=== PATIENT | female | born 2000 | race Caucasian/White ===

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

== ENCOUNTER 2020-01-22 21:54 | Emergency (ER) | payer OTHER ==
--- NOTE | 2020-01-22 23:49 | ER Document Report ---
ED Medical Screen (RME) - General Chief Complaint: Blood Pressure Problem Stated Complaint: HIGH BLOOD PRESSURE Time Seen by Provider: 01/22/20 23:28 Notes: 20-year-old female, at 24 weeks gestation, chief complaint of headache earlier, some swelling in her hands and feet, intermittent pain along her right rib, sensation of lightheadedness and shortness of breath. She denies current shortness of breath, she denies current pain, she took Tylenol for headache and it resolved. She states she was seen by HEAD OF MARKETING [facility] and her blood pressure was 150 systolic, she was not noted to be hypertensive before 20 weeks. She denies any medical history. TRAVEL OUTSIDE OF THE [place] IN LAST 30 DAYS: No - Related Data Allergies/Adverse Reactions: No Known Allergies Allergy (Unverified 11/02/17 22:29) Past Medical History Renal/ Medical History: Denies: Hx Peritoneal Dialysis Physical Exam - Vital signs Vitals: Temp Pulse Resp BP Pulse Ox 98.8 F 83 16 145/75 H 100 01/22/20 22:13 01/22/20 22:13 01/22/20 22:13 01/22/20 22:13 01/22/20 22:13 - Respiratory Respiratory status: No respiratory distress Breath sounds: Normal. No: Decreased air movement Course - Re-evaluation Re-evalutation: Blood pressure 145, work-up pending. Patient well-appearing with no symptoms currently. I have greeted and performed a rapid initial assessment of this patient. A comprehensive ED assessment and evaluation of the patient, analysis of test results and completion of the medical decision making process will be conducted by additional ED providers. - Vital Signs Vital signs: Temp Pulse Resp BP Pulse Ox 98.8 F 83 16 145/75 H 100 01/22/20 23:29 01/22/20 22:13 01/22/20 22:13 01/22/20 22:13 01/22/20 22:13
[2020-01-23 00:21] LABS: APPEARANCE,URINE CLOUDY; BILIRUBIN,URINE NEGATIVE (NEGATIVE); COLOR,URINE YELLOW; GLUCOSE, URINE NEGATIVE (NEGATIVE); KETONES,URINE NEGATIVE (NEGATIVE); LEUKOCYTE ESTERASE,URINE LARGE (NEGATIVE); NITRITE,URINE NEGATIVE (NEGATIVE); PROTEIN,URINE NEGATIVE (NEGATIVE); URINE SPECIFIC GRAVITY 1.018; UROBILINOGEN,URINE NEGATIVE mg/dL (<2.0)
[2020-01-23 01:36] LABS: ABSOLUTE EOSINOPHILS # (AUTO) 0.1 10^3/uL (0.0-0.6); ABSOLUTE LYMPHOCYTES (AUTO) 3.1 10^3/uL (0.5-4.7); ABSOLUTE MONOCYTES (AUTO) 0.9 10^3/uL (0.1-1.4); ABSOLUTE NEUT (AUTO) 14.8 10^3/uL (1.7-8.2); BASOPHILS % (AUTO) 0.2 % (0-2); EOSINOPHILS % (AUTO) 0.6 % (0-6); HEMATOCRIT 35.8 % (36.0-47.0); HEMOGLOBIN 11.9 g/dL (12.0-15.5); LYMPHOCYTES % (AUTO) 16.4 % (13-45); MEAN CORPUSCULAR HEMOGLOBIN 25.9 pg (27.0-33.4); MEAN CORPUSCULAR HGB CONC 33.2 g/dL (32.0-36.0); MEAN CORPUSCULAR VOLUME 78 fl (80-97); MONOCYTES % (AUTO) 4.9 % (3-13); PLATELET COUNT 283 10^3/uL (150-450); RED BLOOD COUNT 4.57 10^6/uL (3.72-5.28); SEGMENTED NEUTROPHILS % (AUTO) 77.9 % (42-78); TOTAL CELLS COUNTED % (AUTO) 100 %; WHITE BLOOD COUNT 19.1 10^3/uL (4.0-10.5)
[2020-01-23 01:39] LABS: ALBUMIN 4.1 g/dL (3.5-5.0); ALKALINE PHOSPHATASE 99 U/L (38-126); ANION GAP 9 (5-19); ASPARTATE AMINO TRANSFERASE 23 U/L (14-36); BILIRUBIN,TOTAL 0.3 mg/dL (0.2-1.3); BLOOD UREA NITROGEN 6 mg/dL (7-20); CALCIUM 9.5 mg/dL (8.4-10.2); CARBON DIOXIDE 23 mmol/L (22-30); CHLORIDE 103 mmol/L (98-107); GLUCOSE 90 mg/dL (75-110); POTASSIUM 3.8 mmol/L (3.6-5.0); TOTAL PROTEIN 7.5 g/dL (6.3-8.2); URIC ACID 2.8 mg/dL (2.5-6.2)
--- NOTE | 2020-01-23 02:05 | ER Document Report ---
Entered by SHAYNA MOTT SCRIBE 01/23/20 0148 Acting as scribe for:BOOGIE ADORNO, DO ED General - General Chief Complaint: Blood Pressure Problem Stated Complaint: HIGH BLOOD PRESSURE Time Seen by Provider: 01/22/20 23:28 Primary Care Provider: ISIDORO PORTILLO PA-C [Primary Care Provider] - Follow up as needed Mode of Arrival: Ambulatory Information source: Patient Notes: This 20 year old female patient, , currently x24 weeks presents to the ED today with complaints of headache, shortness of breath, and intermittent episodes of dizziness that started x1 week ago. Patient states that she has never had these symptoms before during this . She notes that she took Tylenol x3.5 hours prior to arrival for her headache and it has since resolved. She also reports swelling to LE bilaterally, pain along her right rib, lower abdominal pain, and recurrent yeast infections. She states that she was seen by ENDOCRINOLOGY TEACHER yesterday morning at [facility] and that her blood pressure was 150 systolic; she notes that she usually trends 120/60 at her previous visits. She states that her expected due date is 05/13/2020. Denies any past medical history. Denies fever, cough, sick contacts, urinary symptoms, or vaginal bleeding. Denies any nausea and vomiting outside of morning sickness. TRAVEL OUTSIDE OF THE [place] IN LAST 30 DAYS: No - Related Data Allergies/Adverse Reactions: No Known Allergies Allergy (Unverified 11/02/17 22:29) Past Medical History - General Information source: Patient - Social History Smoking Status: Never Smoker Cigarette use (# per day): No Chew tobacco use (# tins/day): No Smoking Education Provided: No Frequency of alcohol use: None Drug Abuse: None Lives with: Spouse/Significant other Family History: Reviewed & Not Pertinent Patient has suicidal ideation: No Patient has homicidal ideation: No - Medical History Medical History: Other - Denies any past medical history Review of Systems - Review of Systems Constitutional: See HPI. denies: Fever EENT: No symptoms reported Cardiovascular: See HPI, Dizziness Respiratory: See HPI, Short of breath. denies: Cough Gastrointestinal: See HPI, Abdominal pain. denies: Diarrhea, Nausea, Vomiting Genitourinary: See HPI. denies: Burning, Dysuria, Frequency, Hematuria Female Genitourinary: - x24 weeks. denies: Vaginal bleeding Musculoskeletal: See HPI, Leg swelling, Other - Right rib pain Skin: No symptoms reported Hematologic/Lymphatic: No symptoms reported Neurological/Psychological: See HPI, Headaches -: Yes All other systems reviewed and negative Physical Exam - Vital signs Vitals: Temp Pulse Resp BP Pulse Ox 98.8 F 83 16 145/75 H 100 01/22/20 22:13 01/22/20 22:13 01/22/20 22:13 01/22/20 22:13 01/22/20 22:13 Interpretation: Hypertensive - General General appearance: Alert In distress: None - HEENT Head: Normocephalic, Atraumatic Eyes: Normal Pupils: PERRL - Respiratory Respiratory status: No respiratory distress Chest status: Nontender Breath sounds: Normal Chest palpation: Normal - Cardiovascular Rhythm: Regular Heart sounds: Normal auscultation Murmur: No Friction rub: No Gallop: None auscultated - Abdominal Inspection: Other Distension: No distension Bowel sounds: Normal Tenderness: Nontender - Abdomen soft Organomegaly: No organomegaly - Back Back: Normal, Nontender - Extremities General upper extremity: Normal inspection General lower extremity: Normal inspection. No: Edema - Neurological Neuro grossly intact: Yes Orientation: AAOx4 Mosier Coma Scale Eye Opening: Spontaneous Mosier Coma Scale Verbal: Oriented Yamileth Coma Scale Motor: Obeys Commands Yamileth Coma Scale Total: 15 - Psychological Associated symptoms: Normal affect, Normal mood - Skin Skin Temperature: Warm Skin Moisture: Dry Skin Color: Normal Course - Re-evaluation Re-evalutation: 01/23/20 04:37 MDM Pleasant primagravida is here with days of headache, mild RUQ pain and concern over elevated BP. He BP was elevated this am - about 150 systolic - at her OB visit at the . Ob was reportedly not concerned. She has had no bp issues with this but after returning home her mother was concerned. She wanted to be evaluated. No visual changes. Mild headache some better with tylenol and RUQ pain but BP here is better 145/75 with normal lft's and platelets. Additionally UTI present which has been treated. Discussed follow up this am with OB and she expressed understanding. No indication for BP meds at this time. - Vital Signs Vital signs: Temp Pulse Resp BP Pulse Ox 97.4 F 87 16 114/58 L 100 01/23/20 02:50 01/23/20 02:50 01/22/20 22:13 01/23/20 02:50 01/23/20 02:50 - Laboratory Result Diagrams: 01/23/20 01:19 01/23/20 01:19 Laboratory results interpreted by me: 01/23/20 01/23/20 01/23/20 00:01 01:19 01:19 WBC 19.1 H Hgb 11.9 L Hct 35.8 L MCV 78 L MCH 25.9 L RDW 15.0 H Absolute Neuts (auto) 14.8 H Sodium 135.2 L BUN 6 L Creatinine 0.43 L Urine Blood MODERATE H Ur Leukocyte Esterase LARGE H Discharge - Discharge Clinical Impression: Qualifiers: Weeks of gestation: 24 weeks Qualified Code(s): Z3A.24 - 24 weeks gestation of UTI (urinary tract infection) Qualifiers: Urinary tract infection type: site unspecified Hematuria presence: with hematuria Qualified Code(s): N39.0 - Urinary tract infection, site not specified Condition: Good Disposition: HOME, SELF-CARE Instructions: High Blood Pressure ([facility]), Urinary Tract Infection ([facility]) Additional Instructions: Call your ob doctor in follow up. Call today. Please return here for any pro blems or any concerns including but limited to visual change, worsening headache, shortness of breath or other concerns. Prescriptions: Cephalexin Monohydrate [Keflex 500 mg Capsule] 500 mg PO TID #30 capsule Referrals: ISIDORO PORTILLO PA-C [Primary Care Provider] - Follow up as needed I personally performed the services described in the documentation, reviewed and edited the documentation which was dictated to the scribe in my presence, and it accurately records my words and actions.
[2020-01-23] MEDS ORDERED: CEFTRIAXONE 1 GM/D5W RTU 1 GM/50 ML RTUPB IV ONE (02:06)
[2020-01-23] MEDS ORDERED: ACETAMINOPHEN 325 MG TABLET PO ONE (02:19)
[2020-01-23 02:54] VITALS: BP 114/58
== END 2020-01-23 02:55 | disposition home or self-care (01) ==
LOC: ER 21:54
DX: O23.42 Unspecified infection of urinary tract in pregnancy, second trimester (principal); O26.892 Other specified pregnancy related conditions, second trimester; R51 Headache; R42 Dizziness and giddiness; R06.02 Shortness of breath; R07.81 Pleurodynia; R10.30 Lower abdominal pain, unspecified; R10.11 Right upper quadrant pain; O99.89 Other specified diseases and conditions complicating pregnancy, childbirth and the puerperium; M79.89 Other specified soft tissue disorders; Z3A.24 24 weeks gestation of pregnancy
CPT/HCPCS: 99284; 96365; 36415; 87040; 83615; 84550; 85025; 80053; 81001; J0696

== ENCOUNTER 2020-05-07 01:45 | Inpatient (IN) | payer MEDICAID, OTHER ==
[2020-05-07] MEDS ORDERED: ZOLPIDEM TARTRATE 5 MG TABLET PO PRN (02:04)
[2020-05-07] MEDS ORDERED: MAG HYDROX/AL HYDROX/SIMETH SUSP 30 ML UDCUP PO PRN (02:04)
[2020-05-07] MEDS ORDERED: OXYTOCIN/0.9 % SODIUM CHLORIDE 30 UNIT/500 ML RTUINJ IV PRN (02:04)
[2020-05-07] MEDS ORDERED: ACETAMINOPHEN 325 MG TABLET PO PRN (02:04)
[2020-05-07 02:29] LABS: ABSOLUTE EOSINOPHILS # (AUTO) 0.1 10^3/uL (0.0-0.6); ABSOLUTE LYMPHOCYTES (AUTO) 2.7 10^3/uL (0.5-4.7); ABSOLUTE MONOCYTES (AUTO) 0.8 10^3/uL (0.1-1.4); ABSOLUTE NEUT (AUTO) 6.8 10^3/uL (1.7-8.2); BASOPHILS % (AUTO) 0.1 % (0-2); EOSINOPHILS % (AUTO) 0.6 % (0-6); HEMOGLOBIN 10.2 g/dL (12.0-15.5); LYMPHOCYTES % (AUTO) 25.8 % (13-45); MEAN CORPUSCULAR HEMOGLOBIN 24.9 pg (27.0-33.4); MEAN CORPUSCULAR HGB CONC 31.9 g/dL (32.0-36.0); MEAN CORPUSCULAR VOLUME 78 fl (80-97); MONOCYTES % (AUTO) 7.8 % (3-13); PLATELET COUNT 185 10^3/uL (150-450); RED CELL DISTRIBUTION WIDTH 17.8 % (11.5-14.0); SEGMENTED NEUTROPHILS % (AUTO) 65.7 % (42-78); TOTAL CELLS COUNTED % (AUTO) 100 %; WHITE BLOOD COUNT 10.3 10^3/uL (4.0-10.5)
[2020-05-07] MEDS ORDERED: RINGERS SOLUTION,LACTATED 300 ML IV ONE (02:45)
[2020-05-07] MEDS ORDERED: DINOPROSTONE 10 MG VAGINAL INSERT.SR PV ONE (02:45)
[2020-05-07] MEDS ORDERED: LIDOCAINE 1% INJ-PF (10 MG/ML) 30 ML SDV ONE ×2 (02:52→21:12)
[2020-05-07] MEDS ORDERED: MISOPROSTOL 0.2 MG TABLET ONE ×2 (02:52→21:11)
[2020-05-07] MEDS ORDERED: OXYTOCIN 10 UNIT/ML VIAL ONE ×2 (02:52→21:11)
[2020-05-07] MEDS ORDERED: DINOPROSTONE 10 MG VAGINAL INSERT.SR ONE (02:52)
[2020-05-07] MEDS ORDERED: OXYTOCIN/0.9 % SODIUM CHLORIDE 30 UNIT/500 ML RTUINJ ONE ×3 (02:52→21:12)
[2020-05-07 03:31] LABS: APPEARANCE,URINE CLOUDY; BILIRUBIN,URINE NEGATIVE (NEGATIVE); COLOR,URINE YELLOW; GLUCOSE, URINE NEGATIVE (NEGATIVE); KETONES,URINE NEGATIVE (NEGATIVE); LEUKOCYTE ESTERASE,URINE LARGE (NEGATIVE); NITRITE,URINE NEGATIVE (NEGATIVE); PROTEIN,URINE 100 mg/dL (NEGATIVE); URINE SPECIFIC GRAVITY 1.024
[2020-05-07 03:53] LABS: URINE AMPHETAMINES SCREEN NEGATIVE; URINE BARBITURATES SCREEN NEGATIVE; URINE BENZODIAZEPINES SCREEN NEGATIVE; URINE COCAINE SCREEN NEGATIVE; URINE MARIJUANA (THC) SCREEN NEGATIVE; URINE METHADONE SCREEN NEGATIVE; URINE PHENCYCLIDINE SCREEN NEGATIVE
--- NOTE | 2020-05-07 08:44 | L&D Progress Notes ---
PROGRESS NOTES Datetime Report Generated by CPN: 05/07/2020 08:43 PROGRESS NOTE Comment: Cat 1 strip. feeling good, eating bkf, no c/o, rev POC, hsb at BS LAST VAGINAL EXAM-NURSING Nursing Exam Dilitation: 1.0 Nursing Exam Effacement: 25 Nursing Exam Station: -3 Nursing Exam Contractions: Patient denies pain or feeling contractions at this time. SIGNATURE SIGNATURE: [id number] Assignment: Kristen Pimentel MD Signature: with User ID: Sandro : with User ID: Sandro
[2020-05-07] MEDS ORDERED: NALBUPHINE HCL INJ 10 MG/1 ML AMPULE ONE (11:08)
[2020-05-07] MEDS ORDERED: ONDANSETRON HCL INJ/PF 4 MG/2 ML SDV ONE (11:09)
[2020-05-07] MEDS ORDERED: ONDANSETRON HCL INJ/PF 4 MG/2 ML SDV IV ONE (11:13)
[2020-05-07] MEDS ORDERED: NALBUPHINE HCL INJ 10 MG/1 ML AMPULE INJ ONE (11:13)
[2020-05-07] MEDS: RINGERS SOLUTION,LACTATED 1,000 ML IV PRN ×2 (11:19→22:48)
--- NOTE | 2020-05-07 13:49 | L&D Progress Notes ---
PROGRESS NOTES Datetime Report Generated by CPN: 05/07/2020 13:49 PROGRESS NOTE Comment: Irreg uc's, Cat 1 strip, Cooks catheter remains in place LAST VAGINAL EXAM-NURSING Nursing Exam Dilitation: 1.5 Nursing Exam Effacement: 50 Nursing Exam Station: -3 Nursing Exam Contractions: Patient denies pain or feeling contractions at this time. SIGNATURE SIGNATURE: [id number] Assignment: Kristen Pimentel MD Signature: with User ID: Sandro : with User ID: Sandro
--- NOTE | 2020-05-07 15:46 | L&D Progress Notes ---
PROGRESS NOTES Datetime Report Generated by CPN: 05/07/2020 15:45 PROGRESS NOTE Comment: irreg uc's, Cat 1 strip LAST VAGINAL EXAM-NURSING Nursing Exam Dilitation: 3.0 Nursing Exam Effacement: 60 Nursing Exam Station: -3 Nursing Exam Contractions: Patient reports some contractions but not all, pain 2/5, resting tone relaxed between contractions. SIGNATURE SIGNATURE: [id number] Assignment: Kristen Pimentel MD Signature: with User ID: Sandro : with User ID: Sandro
[2020-05-07] MEDS ORDERED: HYDRALAZINE HCL INJ/PF 20 MG/1 ML SDV ONE (19:30)
[2020-05-07] MEDS ORDERED: EPHEDRINE SULFATE INJ 50 MG/1 ML AMPULE ONE (21:11)
[2020-05-07] MEDS ORDERED: FENTANYL/BUPIVACAINE/NS/PF 300 MCG/150 ML RTUINJ EPI ONE (21:12)
[2020-05-07] MEDS ORDERED: ROPIVACAINE HCL 0.2% INJ/PF (2 MG/ML) 20 ML SDV ONE (21:12)
[2020-05-08] MEDS: RINGERS SOLUTION,LACTATED 1,000 ML IV PRN ×2 (01:27→18:35)
--- NOTE | 2020-05-08 03:02 | L&D Progress Notes ---
PROGRESS NOTES Datetime Report Generated by CPN: 05/08/2020 03:01 PROGRESS NOTE Impression: Normal Progression of Labor Procedures: Sterile Vag Exam Plan: Continue Present Management; Induction Informed Consent Obtained: Vaginal Delivery; Induction of Labor; Risks, Benefits and Alternatives Discussed Vital Signs : Reviewed Comment: cooks catheter out approx 2 hour ago. CVx 5-6 but cooks catheter 5-6. AROM with clear fluid. Continue pitocin to attempt to get patient in active labor LAST VAGINAL EXAM-NURSING Nursing Exam Dilitation: 6.0 Nursing Exam Effacement: 75 Nursing Exam Station: -1 Nursing Exam Contractions: at bedside, palpation utilized, contractions every 3-4 minutes FETUS A Monitoring: External US SIGNATURE SIGNATURE: [id number] Assignment: Kristen Pimentel MD Signature: with User ID: Ryan : with User ID: Ryan
[2020-05-08] MEDS ORDERED: DEXTROSE 5%-WATER 250 ML IV PRN (03:39)
[2020-05-08] MEDS ORDERED: ROPIVACAINE HCL 0.2% INJ/PF (2 MG/ML) 20 ML SDV ONE (06:51)
[2020-05-08] MEDS ORDERED: ACETAMINOPHEN 325 MG TABLET PO ONE (07:26)
[2020-05-08] MEDS ORDERED: HYDRALAZINE HCL INJ/PF 20 MG/1 ML SDV IV ONE (07:26)
[2020-05-08] MEDS ORDERED: HYDRALAZINE HCL INJ/PF 20 MG/1 ML SDV ONE (07:30)
[2020-05-08] MEDS ORDERED: ACETAMINOPHEN 325 MG TABLET ONE (07:31)
[2020-05-08] MEDS ORDERED: OXYTOCIN 10 UNIT/ML VIAL ONE ×2 (08:36→09:46)
[2020-05-08] MEDS ORDERED: GLYCOPYRROLATE INJ 0.4 MG/2 ML VIAL ONE (08:36)
[2020-05-08] MEDS ORDERED: KETOROLAC TROMETHAMINE INJ/PF 30 MG/1 ML SDV ONE ×2 (08:36→08:38)
[2020-05-08] MEDS ORDERED: MIDAZOLAM 2 MG/2 ML INJ ONE ×2 (08:37→10:05)
[2020-05-08] MEDS ORDERED: OXYTOCIN/0.9 % SODIUM CHLORIDE 0 UNIT/0 ML RTUINJ ONE (08:37)
[2020-05-08] MEDS ORDERED: EPHEDRINE SULFATE INJ 50 MG/1 ML AMPULE ONE (08:37)
[2020-05-08] MEDS ORDERED: PHENYLEPHRINE HCL INJ/PF 10 MG/1 ML SDV ONE (08:37)
[2020-05-08] MEDS ORDERED: FENTANYL CITRATE INJ/PF 100 MCG/2 ML AMPUL ONE (08:37)
[2020-05-08] MEDS ORDERED: KETAMINE HCL INJ 500 MG/10 ML VIAL ONE (08:37)
[2020-05-08] MEDS ORDERED: ACETAMINOPHEN 1,000 MG/100 ML RTUPB IV ONE (08:38)
[2020-05-08] MEDS ORDERED: LIDOCAINE 2% INJ-PF (20 MG/ML) 10 ML AMPUL ONE (08:38)
[2020-05-08] MEDS ORDERED: ONDANSETRON HCL INJ/PF 4 MG/2 ML SDV ONE (08:38)
[2020-05-08] MEDS ORDERED: CITRIC ACID/SODIUM CITRATE ORAL SOLN 15 ML UDCUP ONE (08:42)
[2020-05-08] MEDS ORDERED: CEFAZOLIN 2 GM/D5W RTU 2 GM/50 ML RTUPB IV ONE (08:42)
[2020-05-08] MEDS ORDERED: LIDOCAINE 2%/EPINEPHRINE INJ 20 ML VIAL ONE (09:11)
[2020-05-08] MEDS ORDERED: MEASLES,MUMPS&RUBELLA VACC/PF 0.5 ML VIAL SUBCUT PRN (10:14)
[2020-05-08] MEDS ORDERED: OXYCODONE-ACETAMINOPHEN 5-325 MG TABLET PO PRN (10:14)
[2020-05-08] MEDS ORDERED: OXYTOCIN/0.9 % SODIUM CHLORIDE 30 UNIT/500 ML RTUINJ IV PRN (10:14)
[2020-05-08] MEDS ORDERED: RINGERS SOLUTION,LACTATED 1,000 ML IV PRN (10:14)
[2020-05-08] MEDS ORDERED: ACETAMINOPHEN 325 MG TABLET PO PRN (10:14)
[2020-05-08] MEDS ORDERED: DIPH/PERTUSS(ACELL)/TETANUS VAC/PF 0.5 ML SYR (>=10YO) IM PRN (10:14)
[2020-05-08] MEDS ORDERED: PROMETHAZINE HCL INJ 25 MG/1 ML VIAL IV PRN (10:14)
[2020-05-08] MEDS ORDERED: ACETAMINOPHEN 1,000 MG/100 ML RTUPB IV PRN (10:14)
[2020-05-08] MEDS ORDERED: LABETALOL HCL INJ 20 MG/4 ML DISP.SYRIN IV ONE (10:22)
--- NOTE | 2020-05-08 10:24 | Operative Report ---
Operative Report DATE OF SURGERY: 05/08/20 PREOPERATIVE DIAGNOSIS: Intrauterine at 39 weeks and 1 day, preeclamp radha, failure to progress, slightly asynclitic lie POSTOPERATIVE DIAGNOSIS: Same OPERATION: Primary SURGEON: JAZZ GUZMAN ANESTHESIA: Spinal TISSUE REMOVED OR ALTERED: None COMPLICATIONS: None ESTIMATED BLOOD LOSS: 850 cc INTRAOPERATIVE FINDINGS: Female cephalic presentation occipital was presenting part into the vagina with significant head flexion Apgars were 9 and 9, weight 8 pounds 11 ounces PROCEDURE: PROCEDURE IN DETAIL: The patient was taken to the operating room, prepared and draped in a normal sterile fashion in a supine position with a leftward tilt. A transverse skin incision was made with a scalpel and carried through to the underlying layer of fascia with the same scalpel. The fascia was excised in the midline and extended laterally with Jb. The fascia was then dissected from the rectus muscle sharply with Jb and the rectus muscle was divided and the peritoneal cavity was entered sharply with the same Metzenbaum. With good visualization of the bladder and the uterus the bladder blade was inserted. The hysterotomy was nicked with a scalpel and extended laterally with surgeon finger fraction. The infant was then delivered atraumatically. The nose and mouth were suctioned with a suction bulb, the cord was clamped and cut and handed off to awaiting pediatricians. Cord blood was collected. The placenta was removed manually. The uterus was exteriorized and cleared of clots and debris. The hysterotomy was closed with 0 Monocryl in a running, locked fashion. A second layer of the same suture was used to imbricate to ensure hemostasis. The uterus was returned to the abdomen and peritoneal cavity was cleared of clots and debris. The rectus muscle and peritoneum were repaired with mattress stitch of 2-0 Chromic. The fascia was closed with 0-Vicryl. The subcutaneous layer was closed with plain catgut and the skin was closed with 4-0 Vicryl. The patient tolerated the procedure well. Sponge, lap, and needle counts correct x2 and the patient was taken to recovery in stable condition.
--- NOTE | 2020-05-08 11:50 | Delivery Summary ---
Del Sum A-C Datetime Report Generated by CPN: 05/08/2020 11:49 DELIVERY PERSONNEL DELIVERY PERSONNEL: [id number] Delivery Doctor:: Taylor Ramirez MD Anesthesiologist:: Dr Mondragon CUFF SLITTER:: Jj Normile, CUFF SLITTER Labor and Delivery Nurse:: Mamta Pichardo RN Geodesy Teacher:: Mamta Pichardo RN Excellence Consultant/SPEECH LANGUAGE PATHOLOGIST ASSISTANT: Bradford Liriano CST Excellence Consultant/SPEECH LANGUAGE PATHOLOGIST ASSISTANT: Roxy Berger, CHILD NUTRITION MANAGER MATERNAL INFORMATION Delivery Anesthesia: Epidural Medications After Delivery: Pitocin 30 Units in 500ml NS/D5W Delivery QBL: 690 Maternal Complications: None LABOR SUMMARY EDC: 05/13/2020 00:00 No. Babies in Womb: 1 Attempted: No Labor Anesthesia: Epidural LABOR INFORMATION Reason for Induction: Pre-Eclampsia Onset of Labor: 05/07/2020 17:20 Cervical Ripening Agents: Cervidil; Other Other Ripening Agents: cooks cath Oxytocin: Induction Group B Beta Strep: Negative Antibiotics Time of Last Dose: 05/08/2020 09:18 Name of Antibiotic Given: Ancef 2 gm Steroids Given: None Reason Steroids Not Administered: Not Applicable MEMBRANES Membranes Rupture Method: Artificial Rupture of Membranes: 05/07/2020 18:59 Length of Rupture (hr): 14.70 Amniotic Fluid Color: Light Meconium Amniotic Fluid Amount: Small Amniotic Fluid Odor: Normal STAGES OF LABOR Stage 3 hr: 0 Stage 3 min: 2 Total Time in Labor hr: 16 Total Time in Labor min: 23 VAGINAL DELIVERY Episiotomy: None Laceration #1: None Laceration Extension #1: N/A Laceration Repair: Not Applicable Sponge Count Correct: N/A Sharps Count Correct: N/A CSECTION DELIVERY Primary Indication: Failed Induction CSection Urgency: Emergency CSection Incidence: Primary Labor: Labor Elective: Elective CSection Incision: Lower Uterine Transverse BABY A INFORMATION Infant Delivery Date/Time: 05/08/2020 09:41 Method of Delivery: Vaginal Nurse Controlled Delivery: No Born in Route : No : N/A Forceps: N/A Vacuum Extraction: N/A Shoulder Dystocia : No PRESENTATION/POSITION BABY A Presentation: Cephalic Cephalic Presentation: Vertex Breech Presentation: N/A PLACENTA INFORMATION BABY A Placenta Delivery Time : 05/08/2020 09:43 Placenta Method of Delivery: Manual Removal Placenta Status: Delivered SCORES BABY A Heart Rate 1 min: >100 bpm Resp Effort 1 min: Good Cry Reflex Irritability 1 min: Cough or Sneeze or Pulls Away Muscle Tone 1 min: Active Motion Color 1 min: Body [place], Extremities Blue Resuscitation Effort 1 min: Tactile Stimulation SCORE 1 MIN: 9 Heart Rate 5 min: >100 bpm Resp Effort 5 min: Good Cry Reflex Irritability 5 min: Cough or Sneeze or Pulls Away Muscle Tone 5 min: Active Motion Color 5 min: Body [place], Extremities Blue Resuscitation Effort 5 min: N/A SCORE 5 MIN: 9 INFORMATION BABY A Gestational Age at Delivery: 39.2 Gestational Status: Full Term- 39- 40.6 Weeks Infant Outcome : Liveborn Infant Condition : Stable Infant Sex: Female IDENTIFICATION BABY A Infant Verification Date/Time: 05/08/2020 09:43 ID Band Number: [id number] Mother's Name Verified: Yes RN Verifying Infant: C Cache RN T Heri RN WEIGHT/LENGTH BABY A Infant Birthweight (gm): 3935 Weight (lb): 8 Infant Weight (oz): 11 Length (in): 20.50 Length (cm): 52.07 CORD INFORMATION BABY A No. Cord Vessels: 3 Nuchal Cord : N/A Cord Blood Taken: Yes-For Eval (Mom's Blood Type - or O+) Suction: None ASSESSMENT BABY A Infant Complications: Meconium Skin to Skin: No Infant Care By: JGlover RN Transferred To: Nursery BABY B INFORMATION : N/A
--- NOTE | 2020-05-08 11:50 | Birth Certificate Data ---
Cert Data Datetime Report Generated by CPN: 05/08/2020 11:49 CERTIFICATE DATA 47a. Care: Yes (05/07/2020 01:27:Yanira Childers RN) 47b. Date of First Visit: 10/06/2019 00:00 (05/07/2020 01:27:Tran James RN) 47c. Date of Last Visit: 04/28/2020 00:00 (05/07/2020 01:27:Tran James RN) 47d. Number of Visits: 9 (05/07/2020 01:27:Tran James RN) 48a. Number of Prev Live Births: 0 (05/07/2020 01:27:Yanira Childers RN) 48b. Now Livin (05/07/2020 01:27:Yanira Childers RN) 48c. Live Births Now : 0 (05/07/2020 01:27:QS system process) 48e. Losses: 0 (05/07/2020 01:27:Yaniar Childers RN) RISK FACTORS IN THIS 49a. Diabetes: No (05/07/2020 01:27:Yanira Childers RN) 49b. Hypertension: No (05/07/2020 01:27:Yanira Childers RN) Type of Hypertension: Gestational (PIH, Pre-eclampsia) (05/07/2020:27:Edda Bolden RN) 49c. Previous Births: 0 (05/07/2020 01:27:Yanira Childers RN) 49d. Stillborns: No (05/07/2020:27:Shannon Fletcher RN) 49d. IUGR: No (05/07/2020:27:Shannon Fletcher RN) 49e. Infertility Treatment: No (05/07/2020:27:Shannon Fletcher RN) 49f. Previous Cesareans: 0 (05/07/2020 01:27:Yanira Childers RN) Mother's Height 50b. Height Inches: 67 (05/08/2020 09:45:QS system process) Mother's Weight 51b. Weight at Delivery (lbs): 253 (05/07/2020 03:47:QS system process) 52. Dt Last Normal Menses Began: 08/07/2019 00:00 (05/07/2020 01:27:Tran James RN) Infections Present/Treated 53a. Gonorrhea: No (05/07/2020 01:27:Shannon Fletcher RN) Results this Hospital Visit : Negative (05/07/2020 01:27:Yanira Childers RN) 53b. Syphilis: No (05/07/2020 01:27:Shannon Fletcher RN) Results this Hospital Visit: NONREACTIVE (05/07/2020 02:17:QS system process) 53c. Chlamydia: Yes (05/07/2020 01:27:Shannon Fletcher RN) Results this Hospital Visit: Negative (05/07/2020 01:27:Yanira Childers RN) 53d. Hepatitis B: No (05/07/2020 01:27:Shannon Fletcher RN) Results this Hospital Visit: Negative (05/07/2020 01:27:Yanira Childers RN) 53e. Hepatitis C: Negative (05/07/2020 01:27:Yanira Childers RN) 53h. Mother Tested for HBsAG: Yes (05/07/2020 01:27:Tran James RN) 53i. Date Tested: 10/24/2019 00:00 (05/07/2020 01:27:Tran James RN) 53j. Test Result: Negative (05/07/2020 01:27:Yanira Childers RN) Obstetric Procedures 54a, b, c. Obstetric Procedures: Ultrasound; NST (05/07/2020 01:27:Shannon Fletcher RN) Cigarette Smoking 55a. 3 Months Before Preg - Ci (05/07/2020 01:27:Tran James RN) 55a. Packs: 0 (05/07/2020 01:27:Tran James RN) 55b. 1st Trimester of Preg- Ci (05/07/2020 01:27:Tran James RN) 55b. Packs: 0 (05/07/2020 01:27:Tran James RN) 55c. 2nd Trimester of Preg- Ci (05/07/2020 01:27:Tran James RN) 55c. Packs: 0 (05/07/2020 01:27:Tran James RN) 55d. 3rd Trimester of Preg- Ci (05/07/2020 01:27:Tran James RN) 55d. Packs: 0 (05/07/2020 01:27:Tran James RN) Onset of Labor 56a. PROM >12 Hrs: 14.70 (05/07/2020 18:59:QS system process) 56b. Precipitous Labor <3 Hrs: 16 (05/07/2020 01:27:QS system process) 56c. Prolonged Labor > 20 Hrs: 16 (05/07/2020 01:27:QS system process) 57a. Induction of Labor: Induction (05/07/2020 01:27:Deirdre Crane RN) 57a. Induction of Labor: Cervidil; Other (05/07/2020 03:10:Mamta Pichardo RN) 57a. Induction of Labor: cooks cath (05/07/2020 01:27:Mamta Pichardo RN) 57c. Non-Vertex Presentation A: Vertex (05/07/2020 01:27:Mamta Pichardo RN) 57d. Steroids - Lung Mat: None (05/07/2020 01:27:Deirdre Crane RN) 57d. Steroids - Lung Mat: Not Applicable (05/07/2020 01:27:Deirdre Crane RN) 57e. Antibiotics During Labor: 05/08/2020 09:18 (05/07/2020 01:27:Mamta Pichardo RN) 57f. Mat [place] or Temp >100.4: 99.0 (05/07/2020 01:27:Mamta Pichardo RN) 57g. Moderate/Heavy Meconium: Light Meconium (05/07/2020 21:02:Edda Bolden RN) 57h. Intolerance of Labor: Failed Induction (05/07/2020 01:27:Deirdre Crane RN) 57i. Epidural/Spinal Anesthesia: Epidural (05/07/2020 01:27:Deirdre Crane RN) Method of Delivery 58a. Forceps - Unsuccessful A: N/A (05/07/2020 01:27:Mamta Pichardo RN) 58b. Vacuum - Unsuccessful A: N/A (05/07/2020 01:27:Mamta Pichardo RN) 58c. Presentation at 58c. Presentation at - A : Vertex (05/07/2020 01:27:Mamta Pichardo RN) 58c. Presentation at - A : N/A (05/07/2020:27:Mamta Pichardo RN) 58c. Presentation at - A : Cephalic (05/07/2020:27:Mamta Pichardo RN) Final Route and Method of Del 58d. Baby A Route/Delivery: Vaginal (05/07/2020 01:27:Mamta Pichardo RN) 58e. Trial of Labor Attempted: No (05/07/2020 01:27:Deirdre Crane RN) 58e. Trial of Labor Attempted A: N/A (05/07/2020:27:Deirdre Crane RN) 58e. Trial of Labor Attempted B: N/A (05/07/2020 01:27:Deirdre Rosa Maria, RN) Maternal Morbidity 59b. 3rd or 4th Degree Lacs: None (05/07/2020 01:27:Deirdremickie Crane, RN) Birthweight Baby A: 3935 (05/07/2020 01:27:Esther Willis, RN) 60a. Pounds : 8 (05/07/2020 01:27:QS system process) 60b. Ounces: 11 (05/07/2020 01:27:QS system process) 61. GA at Delivery Baby A: 39.2 (05/07/2020 01:27:Deirdre Crane RN) : Full Term- 39- 40.6 Weeks (05/07/2020 01:27:QS system process) 62a. 5 Minute Baby A: 9 (05/07/2020 01:27:QS system process)
[2020-05-08] MEDS: KETOROLAC TROMETHAMINE INJ/PF 30 MG/1 ML SDV IV SCH ×2 (13:35→22:45)
[2020-05-08] MEDS: MORPHINE SULFATE 10 MG/ML INJ IV PRN ×2 (13:55→18:43)
[2020-05-08] MEDS: OXYCODONE-ACETAMINOPHEN 5-325 MG TABLET PO PRN ×2 (16:00→20:04)
[2020-05-08] MEDS: DOCUSATE SODIUM 100 MG CAPSULE PO SCH (18:34)
[2020-05-08] MEDS: SIMETHICONE 80 MG TAB.CHEW PO PRN (19:41)
[2020-05-09] MEDS: IBUPROFEN 800 MG TABLET PO SCH ×6 (04:04→23:50)
[2020-05-09 06:41] LABS: HEMATOCRIT 27.9 % (36.0-47.0); MEAN CORPUSCULAR HEMOGLOBIN 24.9 pg (27.0-33.4); MEAN CORPUSCULAR HGB CONC 32.2 g/dL (32.0-36.0); MEAN CORPUSCULAR VOLUME 77 fl (80-97); PLATELET COUNT 172 10^3/uL (150-450); RED BLOOD COUNT 3.61 10^6/uL (3.72-5.28); RED CELL DISTRIBUTION WIDTH 18.2 % (11.5-14.0); WHITE BLOOD COUNT 15.8 10^3/uL (4.0-10.5)
[2020-05-09] MEDS: KETOROLAC TROMETHAMINE INJ/PF 30 MG/1 ML SDV IV SCH ×2 (07:58→14:48)
--- NOTE | 2020-05-09 09:16 | PDOC PROGRESS REPORT ---
Subjective-OB Progress Note for:: 05/09/20 Subjective: Doing well, no c/o, OOB, holding baby, passing gas, eating and drinking Physical Exam (OB) Vital Signs: Temp Pulse Resp BP Pulse Ox 98.3 F 87 18 136/88 H 100 05/09/20 07:57 05/09/20 07:57 05/09/20 07:57 05/09/20 07:57 05/09/20 07:57 Intake & Output 05/08/20 05/09/20 05/10/20 06:59 06:59 06:59 Intake Total 1331 2300 Output Total 975 Balance 1331 1325 - PIH/Pre-Eclampsia DTR's: 1 + Clonus: Negative Headache: Absent Epigastric Pain: No Visual Changes: No - Dressing Removed: No - opsite, clean/dry/intact Incision: Dressing - Maternal Morbidity 59. Maternal Morbidity (serious complications experinced by the mother associated with labor and delivery: None of the above - Lochia Lochia Amount: Small 10-25 ml Lochia Color: Rubra/Red - Abdomen Description: Tender, Soft, Round Hernia Present: No Fundal Description: Firm, Midline Fundal Height: u/u - u/2 Objective-Diagnostic Laboratory: 05/09/20 06:15 05/09/20 06:15 WBC 15.8 H RBC 3.61 L Hgb 9.0 L Hct 27.9 L MCV 77 L MCH 24.9 L MCHC 32.2 RDW 18.2 H Plt Count 172 Assessment and Plan(PN) - Assessment and Plan (1) S/P primary low transverse Is this a current diagnosis for this admission?: Yes (2) Failure to progress in labor Is this a current diagnosis for this admission?: Yes (3) Pre-eclampsia Qualifiers: Trimester: third trimester Qualified Code(s): O14.93 - Unspecified pre- eclampsia, third trimester Is this a current diagnosis for this admission?: Yes - Time Spent with Patient Time with patient: Less than 15 minutes Medications reviewed and adjusted accordingly: Yes - Disposition Anticipated Discharge Disposition: Home, Self Care Anticipated Discharge Timeframe: within 24 hours
[2020-05-09] MEDS: PRENATAL VITAMIN W DHA CAPSULE PO SCH (10:15)
[2020-05-09] MEDS: DOCUSATE SODIUM 100 MG CAPSULE PO SCH ×2 (10:15→18:14)
[2020-05-09] MEDS: OXYCODONE-ACETAMINOPHEN 5-325 MG TABLET PO PRN ×2 (10:29→16:51)
[2020-05-09] MEDS: SIMETHICONE 80 MG TAB.CHEW PO PRN (10:30)
[2020-05-10] MEDS: IBUPROFEN 800 MG TABLET PO SCH ×2 (05:09→11:51)
[2020-05-10] MEDS: SIMETHICONE 80 MG TAB.CHEW PO PRN (05:14)
[2020-05-10] MEDS: KETOROLAC TROMETHAMINE INJ/PF 30 MG/1 ML SDV IV SCH ×2 (07:00→08:11)
[2020-05-10] MEDS: PRENATAL VITAMIN W DHA CAPSULE PO SCH (09:38)
[2020-05-10] MEDS: DOCUSATE SODIUM 100 MG CAPSULE PO SCH (09:38)
--- NOTE | 2020-05-10 10:42 | PDOC DISCHARGE SUMMARY ---
Impression - Admit/DC Date/PCP Admission Date/Primary Care Provider: 05/07/20 01:45 ISIDORO PORTILLO PA-C Discharge Date: 05/10/20 - POD #2, doing well, no complaints, , O+ - Discharge Diagnosis (1) Normal course Is this a current diagnosis for this admission?: Yes (2) Failure to progress in labor Is this a current diagnosis for this admission?: Yes (3) Pre-eclampsia Is this a current diagnosis for this admission?: Yes (4) S/P primary low transverse Is this a current diagnosis for this admission?: Yes - Additional Information Resuscitation Status: Full Code Discharge Diet: As Tolerated, Regular Referrals: ISIDORO PORTILLO PA-C [Primary Care Provider] - Prescriptions: Ferrous Sulfate 325 mg PO DAILY #30 tablet. Ibuprofen [Motrin 800 mg Tablet] 800 mg PO Q6 #60 tablet Oxycodone HCl/Acetaminophen [Percocet 5-325 mg Tablet] 1 tab PO Q4HP PRN #30 tablet PRN Reason: Pain Scale Of 4 Home Medications: Prenat 115/Iron Fum/Folic/Dss [ 19 Tablet] 1 tab PO DAILY 05/07/20 Ferrous Sulfate 325 mg PO DAILY #30 tablet. 05/10/20 Ibuprofen [Motrin 800 mg Tablet] 800 mg PO Q6 #60 tablet 05/10/20 Oxycodone HCl/Acetaminophen [Percocet 5-325 mg Tablet] 1 tab PO Q4HP PRN #30 tablet 05/10/20 HPI Reason(s) for Admission: Induction of Labor, Obstetric Complications Admission Note: Pre-eclampsia Intrapartum Procedure(s): : Low Cervical, Transverse Hospital Course Hospital Course: normal 59. Maternal Morbidity (serious complications experinced by the mother associated with labor and delivery: None of the above Results Laboratory Results: WBC 15.8 10^3/uL (4.0-10.5) H 05/09/20 06:15 RBC 3.61 10^6/uL (3.72-5.28) L 05/09/20 06:15 Hgb 9.0 g/dL (12.0-15.5) L 05/09/20 06:15 Hct 27.9 % (36.0-47.0) L 05/09/20 06:15 MCV 77 fl (80-97) L 05/09/20 06:15 MCH 24.9 pg (27.0-33.4) L 05/09/20 06:15 MCHC 32.2 g/dL (32.0-36.0) 05/09/20 06:15 RDW 18.2 % (11.5-14.0) H 05/09/20 06:15 Plt Count 172 10^3/uL (150-450) 05/09/20 06:15 Lymph % (Auto) 25.8 % (13-45) 05/07/20 02:17 [place] % (Auto) 7.8 % (3-13) 05/07/20 02:17 Eos % (Auto) 0.6 % (0-6) 05/07/20 02:17 Baso % (Auto) 0.1 % (0-2) 05/07/20 02:17 Absolute Neuts (auto) 6.8 10^3/uL (1.7-8.2) 05/07/20 02:17 Absolute Lymphs (auto) 2.7 10^3/uL (0.5-4.7) 05/07/20 02:17 Absolute Monos (auto) 0.8 10^3/uL (0.1-1.4) 05/07/20 02:17 Absolute Eos (auto) 0.1 10^3/uL (0.0-0.6) 05/07/20 02:17 Absolute Basos (auto) 0.0 10^3/uL (0.0-0.2) 05/07/20 02:17 Seg Neutrophils % 65.7 % (42-78) 05/07/20 02:17 Urine Color 05/07/20 02:15 Urine Appearance 05/07/20 02:15 Urine pH (5.0-9.0) 05/07/20 02:15 Ur Specific [place] 05/07/20 02:15 Urine Protein mg/dL (NEGATIVE) 05/07/20 02:15 Urine Glucose (UA) mg/dL (NEGATIVE) 05/07/20 02:15 Urine Ketones mg/dL (NEGATIVE) 05/07/20 02:15 Urine Blood (NEGATIVE) 05/07/20 02:15 Urine Nitrite (NEGATIVE) 05/07/20 02:15 Urine Bilirubin (NEGATIVE) 05/07/20 02:15 Urine Urobilinogen mg/dL (<2.0) 05/07/20 02:15 Ur Leukocyte Esterase (NEGATIVE) 05/07/20 02:15 Urine Ascorbic Acid (NEGATIVE) 05/07/20 02:15 Urine Opiates Screen 05/07/20 02:15 Urine Methadone Screen 05/07/20 02:15 Ur Barbiturates Screen 05/07/20 02:15 Ur Phencyclidine Scrn 05/07/20 02:15 Ur Amphetamines Screen 05/07/20 02:15 U Benzodiazepines Scrn 05/07/20 02:15 Urine Cocaine Screen 05/07/20 02:15 U Marijuana (THC) Screen 05/07/20 02:15 RPR NONREACTIVE (NONREACTIVE) 05/07/20 02:17 Blood Type O POSITIVE 05/07/20 02:17 Antibody Screen NEGATIVE 05/07/20 02:17 Plan Plan of Treatment: d/c home today, f/up with [facility] in one week for incision and BP check Time Spent: Less than 30 Minutes
[2020-05-10 11:56] VITALS: BP 148/92
--- NOTE | 2020-05-27 17:05 | Admission Physical ---
Datetime Report Generated by CPN: 05/27/2020 17:04 CURRENT ADMISSION Chief Complaint: Uterine Contractions Indication for Induction: Not Applicable Admit Impression : Term, Intrauterine Admit Plan: Admit to Unit; Initiate Labor Protocol ALLERGIES Medication Allergies: No Medication Allergies: No Known Allergies (11/02/2017) Latex: No Latex Allergies OBSTETRICAL HISTORY EDC: 05/13/2020 00:00 : 1 Para: 0 Term: 0 : 0 SAB: 0 IAB: 0 Ectopic: 0 Livin Cesareans: 0 VBACs: 0 Multiple Births: 0 Gestational Diabetes: No Rh Sensitization: No Incompetent Cervix: No MIRTHA: No Infertility: No ART Treatment: No Uterine Anomaly: No IUGR: No Hx Previous C/S: No Macrosomia: No Hx Loss/Stillborn: No PIH: Yes Hx : No Placenta Previa/Abruption: No Depression/PP Depression: No PTL/PROM: No Post Hemorrhage: No Current Procedures: Ultrasound; NST Obstetrical History Comments: G1- current, preeclampsia IOL SEE RECORDS Alcohol: No Marijuana : No Cocaine: No Other Illicit Drugs: No Cigarettes: Never Smoker. 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 Surgery: No Heart Disease: No Hosp/Surgery: No Autoimmune Disorder: No Anesthetic Complications: No Kidney Disease: Yes Abnormal Pap Smear: No Neuro/Epilepsy: No Psychiatric Disorders: No Other Medical Diseases: No Hepatitis/Liver Disease: No Significant Family History: No Varicosities/Phlebitis: No Trauma/Violence : No Thyroid Dysfunction: No Medical History Comments: anemia, obesity, UTI with , dyslexia per patient INFECTIOUS HISTORY Gonorrhea: No Genital Herpes: No Chlamydia: Yes Tuberculosis: No Syphilis: No Hepatitis: No HIV/AIDS Exposure: No Rash or Viral Illness: No HPV: No Infectious History Comments: chlam with REBEKAH 04/06/20 PHYSICAL EXAM General: Normal HEENT: Normal Neurologic: Normal Thyroid: Normal Heart: Normal Lungs: Normal Breast: Deferred Back: Normal Abdomen: Normal Genitourinary Exam: Normal Extremities: Normal DTRs: Normal Pelvic Type: Adequate FETUS A EGA: 39.1 PLANS FOR LABOR AND DELIVERY Labor and Delivery: None Pain Management: Epidural Feeding Preference: Breast Benefit of Breast Feed Discussed: Yes Circumcision: N/A INFORMED CONSENT Informed Consent Obtained: Vaginal Delivery; Induction of Labor; Risks, Benefits and Alternatives Discussed Informed Consent Obtained: Vaginal Delivery; Induction of Labor; Risks, Benefits and Alternatives Discussed Signature: with User ID: [email or web address]
== END 2020-05-10 13:20 | disposition home or self-care (01) | DRG 788 ==
LOC: LR 01:45 → 2N 05-08 12:25
PROVIDERS: ADMIT Obstetrics & Gynecology Gynecology; ATTEND Obstetrics & Gynecology
PROC: 0U7C7ZZ Dilation of Cervix, Via Natural or Artificial Opening (ICD-10-PCS; 2020-05-07)
PROC: 3E0P7VZ Introduction of Hormone into Female Reproductive, Via Natural or Artificial Opening (ICD-10-PCS; 2020-05-07)
PROC: 10907ZC Drainage of Amniotic Fluid, Therapeutic from Products of Conception, Via Natural or Artificial Opening (ICD-10-PCS; 2020-05-07)
PROC: 10D00Z1 Extraction of Products of Conception, Low, Open Approach (ICD-10-PCS; principal; 2020-05-08)
DX: O14.94 Unspecified pre-eclampsia, complicating childbirth (principal); O32.8XX0 Maternal care for other malpresentation of fetus, not applicable or unspecified; O62.2 Other uterine inertia; O77.0 Labor and delivery complicated by meconium in amniotic fluid; O99.214 Obesity complicating childbirth; E66.9 Obesity, unspecified; Z37.0 Single live birth; Z3A.00 Weeks of gestation of pregnancy not specified; Z3A.39 39 weeks gestation of pregnancy
CPT/HCPCS: 1967; 1968; 36415; 80307; 81005; 85025; 85027; 86592; 86850; 86900; 86901; 94799; 99140; C1758; J0131; J0360; J0690; J1885; J2250; J2270; J2300; J2370; J2405; J2590; J2795; J3010; J3490; J7120